=== PATIENT | female | born 1930 | race Caucasian/White ===

== ENCOUNTER 2016-11-22 10:46 | Emergency (ER) | payer OTHER ==
[~2016-11-22] VITALS: Ht 157.5 cm; Wt 59.0 kg
[~2016-11-22 10:46] MED LIST: ACETAMINOPHEN325 M1 PO; ARICEPT 5 MG TAB5 MG PO; CLARITIN10 MG PO; LIDODERM 5%1 PATCH TRANSDERM; NIFEDIPINE ER60 M1 PO; POTASSIUM20 PO; REMERON15 MG PO; TENORMIN50 MG PO; TRAMADOL 50 MG50 MG PO; ZESTRIL20 MG PO
[2016-11-22 11:23] LABS: URINE BILIRUBIN NEGATIVE (Negative); URINE BLOOD NEGATIVE (Negative); URINE COLOR YELLOW; URINE GLUCOSE-RANDOM* NEGATIVE (Negative); URINE KETONES NEGATIVE (Negative); URINE NITRITE NEGATIVE (Negative); URINE PROTEIN (DIPSTICK) NEGATIVE (Negative); URINE SPECIFIC GRAVITY <= 1.005 (1.003-1.035); URINE UROBILINOGEN 0.2 E.U./dl (0.2-1.0)
[2016-11-22 11:29] LABS: ABSOLUTE NEUTROPHILS 2.6 thou/uL (1.4-8.2); BASOPHILS 1.1 % (0.0-2.0); EOSINOPHILS 1.3 % (0.0-3.0); HEMOGLOBIN 12.9 gm/dL (12.0-15.0); LYMPHOCYTES 51.3 % (24.0-44.0); MCH 29.8 pg (26.0-34.0); MCHC 34.8 g/dL (28.0-37.0); MCV 85.6 fL (80.0-100.0); MONOCYTES 8.9 % (1.0-8.0); PLATELET COUNT 202 thou/uL (150-400); POLYS 37.4 % (36.0-66.0); RBC 4.32 mil/uL (4.20-5.00); RDW 13.2 % (10.5-14.5); WBC 6.9 thou/uL (4.0-11.0)
[2016-11-22 11:31] LABS: MANUAL DIFF NO
[2016-11-22 11:32] LABS: AMORPHOUS URATES Few /LPF (None Seen); CASTS None Seen /LPF (None Seen); SQUAMOUS 0-3 Few /LPF (0-3); URINE RBC None Seen /HPF (0-2); URINE WBC 6-15 Few /HPF (0-5)
[2016-11-22 11:34] LABS: ANION GAP 5 mmol/L (7-16); BUN 18 mg/dL (7-18); CALCIUM 9.4 mg/dL (8.5-10.1); CHLORIDE 106 mmol/L (98-107); CO2 30 mmol/L (21-32); CREATININE 1.1 mg/dL (0.6-1.0); GLUCOSE 144 mg/dL (74-106); SODIUM 141 mmol/L (136-145)
[2016-11-22 11:40] LABS: ACETAMINOPHEN < 2 ug/mL (10-30); ALBUMIN 3.5 g/dL (3.4-5.0); ALKALINE PHOSPHATASE 88 U/L (46-116); DIRECT BILIRUBIN < 0.1 mg/dL (<0.1-0.3); SALICYLATE < 2.8 mg/dL (2.8-20.0); SGOT 18 U/L (15-37); SGPT 21 U/L (30-65); TOTAL BILIRUBIN 0.3 mg/dL (<0.1-1.0); TOTAL PROTEIN 7.2 g/dL (6.4-8.2)
[2016-11-22] MEDS ORDERED: POTASSIUM20 PO (12:33)
[2016-11-22] MEDS ORDERED: KEFLEX500 MG PO (12:33)
== END 2016-11-22 12:48 ==
LOC: ER 10:46
PROVIDERS: Emergency Medicine
DX: N39.0 Urinary tract infection, site not specified (principal); E87.6 Hypokalemia; I10 Essential (primary) hypertension; F03.90 Unspecified dementia, unspecified severity, without behavioral disturbance, psychotic disturbance, mood disturbance, and anxiety; Z90.710 Acquired absence of both cervix and uterus; Z98.890 Other specified postprocedural states

== ENCOUNTER 2018-05-11 16:00 | Emergency (ER) | payer OTHER ==
[~2018-05-11] VITALS: Ht 157.5 cm; Wt 63.5 kg
[~2018-05-11 16:00] MED LIST changes: +ATIVAN0.5 MG PO; +KEFLEX500 M1 PO; +KEFLEX500 MG PO; +MELATONIN1 MG PO; +MYLANTA PO; +ONDANSETRON HCL4 M2 PO; +PEPCID20 MG PO; +VOLTAREN GEL 1100 G2 TOP
[2018-05-11 16:46] LABS: ABSOLUTE NEUTROPHILS 2.4 thou/uL (1.4-8.2); EOSINOPHILS 1.4 % (0.0-3.0); HEMATOCRIT 44.3 % (37.0-47.0); HEMOGLOBIN 14.9 gm/dL (12.0-15.0); LYMPHOCYTES 51.7 % (24.0-44.0); MCH 30.3 pg (26.0-34.0); MCHC 33.7 g/dL (28.0-37.0); MCV 89.6 fL (80.0-100.0); MONOCYTES 9.7 % (1.0-8.0); PLATELET COUNT 174 thou/uL (150-400); POLYS 36.2 % (36.0-66.0); RBC 4.94 mil/uL (4.20-5.00); RDW 13.6 % (10.5-14.5); WBC 6.6 thou/uL (4.0-11.0)
[2018-05-11 16:50] LABS: ANION GAP 10 mmol/L (7-16); BUN 22 mg/dL (7-18); CALCIUM 10.1 mg/dL (8.5-10.1); CHLORIDE 105 mmol/L (98-107); CO2 29 mmol/L (21-32); GLUCOSE 89 mg/dL (74-106); POTASSIUM 4.1 mmol/L (3.5-5.1); SODIUM 144 mmol/L (136-145)
[2018-05-11 16:59] LABS: TROPONIN-I <0.06 ng/mL (<0.06)
[2018-05-11 19:22] VITALS: BP 174/75
--- NOTE | 2018-05-12 07:51 | EKG ---
[place] [address] [address] [facility] [place] [address] ELECTROCARDIOGRAM REPORT Name: CHERYL JAIME Room #: [facility]P [facility] [id number] ������������������ Admission: 05/11/18 ������������������ Attend Phys: Discharge: 05/11/18 ������������������ Date of : 34 Report #: [id number] ����������������������������������������������������������������� [id number] THIS REPORT FOR: //name// [facility] ED Test Date: 2018-05-11 Test Time: 16:23:35 Pat Name: CHERYL JAIME Department: Room: Gender: F Medical Administrative Specialist: [facility] : 1930 Requested By: Silvana Barillas Order Number: [id number] MD: Farrukh Ladd Measurements Intervals [place] Rate: 49 P: 53 ID: [id number] QRS: -6 QRSD: 90 T: 38 QT: 434 QTc: 392 Interpretive Statements Sinus bradycardia with sinus arrhythmia Otherwise no significant abnormality Compared to ECG 10/19/2017 08:29:14 No significant change was found Electronically Signed On 05-12-2018 7:50:53 DRILLING MACHINE RUNNER by Farrukh Ladd [email or web address] ��������������������������������������������� <ELECTRONICALLY SIGNED> ���������������������������������������� By: Farrukh Ladd MD, [facility] ��������������������������������������������� 05/12/18 0750 1622 22 aFrrukh Ladd MD, FACC /EPI
== END 2018-05-11 19:27 | disposition home or self-care (01) ==
LOC: ER 16:00
PROVIDERS: Emergency Medicine
DX: R07.89 Other chest pain (principal); I10 Essential (primary) hypertension; F03.90 Unspecified dementia, unspecified severity, without behavioral disturbance, psychotic disturbance, mood disturbance, and anxiety; Z90.49 Acquired absence of other specified parts of digestive tract; Z90.710 Acquired absence of both cervix and uterus

== ENCOUNTER 2020-04-07 20:20 | Inpatient (IN) | payer OTHER ==
[~2020-04-07] VITALS: Ht 162.6 cm; Wt 55.5 kg
[2020-04-07 20:21] VITALS: BP 189/145
[2020-04-07 20:42] LABS: HEMATOCRIT 40.1 % (37.0-47.0); HEMOGLOBIN 12.7 gm/dL (12.0-15.0); MCH 29.1 pg (26.0-34.0); MCHC 31.7 g/dL (28.0-37.0); PLATELET COUNT 190 thou/uL (150-400); RBC 4.36 mil/uL (4.20-5.00); RDW 14.4 % (10.5-14.5); WBC 12.7 thou/uL (4.0-11.0)
[2020-04-07 20:57] LABS: PROTIME 10.6 Seconds (9.3-11.4)
[2020-04-07 21:29] LABS: CALCIUM 8.5 mg/dL (8.5-10.1); CREATININE 1.1 mg/dL (0.6-1.0)
[2020-04-07 21:31] LABS: ABSOLUTE NEUTROPHILS 10.3 thou/uL (1.4-8.2); METAMYELOCYTES 2 %
[2020-04-07 21:35] LABS: ALBUMIN 3.4 g/dL (3.4-5.0); TOTAL BILIRUBIN 0.2 mg/dL (0.2-1.0); TOTAL PROTEIN 6.9 g/dL (6.4-8.2)
[2020-04-07] MEDS ORDERED: ATIVAN0.5 M1 PO (22:01)
[2020-04-07] MEDS ORDERED: REMERON30 MG PO (22:02)
[2020-04-07] MEDS ORDERED: MYLANTA MAXIMU355 ML PO (22:03)
[2020-04-07] MEDS ORDERED: NYSTATIN1 EA10 TOP (22:05)
[2020-04-07] MEDS ORDERED: VITAMIN C500 M2 PO (22:07)
[2020-04-07] MEDS ORDERED: ZINC50 MG PO (22:07)
[2020-04-07 22:39] VITALS: BP 194/110
[2020-04-07] MEDS ORDERED: ARICEPT10 M1 PO (22:59)
[2020-04-07 23:11] VITALS: BP 178/105
[2020-04-08 01:49] VITALS: BP 177/94
[2020-04-08 05:34] VITALS: BP 143/74
[2020-04-08 05:39] LABS: HEMATOCRIT 34.4 % (37.0-47.0); HEMOGLOBIN 11.1 gm/dL (12.0-15.0); MCH 29.7 pg (26.0-34.0); MCHC 32.3 g/dL (28.0-37.0); MCV 91.9 fL (80.0-100.0); RBC 3.74 mil/uL (4.20-5.00); RDW 14.3 % (10.5-14.5); WBC 9.4 thou/uL (4.0-11.0)
[2020-04-08 05:47] LABS: CALCIUM 9.2 mg/dL (8.5-10.1); CREATININE 1.1 mg/dL (0.6-1.0); POTASSIUM 4.9 mmol/L (3.5-5.1)
--- NOTE | 2020-04-08 08:26 | NUR ---
RECIEVED CARE OF PATIENT AT 2325 FROM ED ACCOMPANIED BY ED PERSONEL. PATIENT ORIENTED TO SELF ONLY. RESTLESS AND AGGITATED WHEN ARRIVED ON FLOOR. TRANSFERRED TO BED AND SOON SETTLED DOWN. HAS BIG GOOSE EGG ABOVE L EYE WITH ABRASION. PATIENT NON-VERBAL EXCEPT FOR A FEW WORDS. UNABLE TO ANSWER ADMIT QUESTIONS. DOES NOT APPEAR TO BE IN PAIN. RASHID CATH INSERTED THIS AM. SLEPT MOST OF THE NIGHT.
[2020-04-08 08:42] VITALS: BP 168/75
[2020-04-08 16:29] VITALS: BP 124/63
[2020-04-08 19:37] VITALS: BP 104/49
--- NOTE | 2020-04-08 21:23 | NUR ---
PT CARE ASSUMED AT 0700. ORIENTED TO SELF. NIGHT NURSE INSERTED RASHID CATHETER PER IMMOBILIZATION PROTOCOL. PT INCONTINENT TO BOWEL AND BLADDER. PT VERY RESTLESS AND PULLS AT RASHID AND UNDRESSES HERSELF. PT WILL HANG HER LEGS OVER THE RAILING. FAMILY (DPOA) REQUESTED ALL 4 RAILS UP ON BED. PT/OT/ST ON BOARD. SPEECH EVAL STATES NO STRAWS AND PILL ONE AT A TIME. PT POTENTIAL DISCHARGE ON FRIDAY AFTER THREE MIDNIGHT TO SKILLED REHAB. PT IS NONVERBAL BUT DID STATE "YUM" AFTER TAKING A DRINK. IV PATENT WITH NO REDNESS OR EDEMA,SALINE LOCKED. FALL PROTOCOL IN PLACE AND CLOSE TO THE NURSES STATION FOR CLOSE OBSERVATION. CALL LIGHT IN REACH. DAUGHTER AT BED SIDE. REPORT GIVEN TO RAJANI SUN.
--- NOTE | 2020-04-08 23:42 | NUR ---
PT WAS OBSERVED REMOVING HER GOWN,PULLED HER IV ACCESS AND WAS PULLING ON HER RASHID CATH.PT ALERT TO SELF.PT NOT REDIRECTABLE DUE TO ORIENTATION.PT BECAME AGGRESSIVE AND COMBATIVE WHEN STAFF TRIED TO HELP HER PUT HER GOWN AND HER OXYGEN BACK ON.PT WAS PUT ON 2L/NC DUE TO LOW O2 SAT.PRN MED GIVEN FOR PAIN AND ANXIETY.PT SLEPT FOR A WHILE AND WOKE UP AND STARTED PULLING ON HER O2,RASHID AND GOWN.BENDER HELPER ON DUTY NOTIFIED,ORDER NOTED AND CARRIED OUT.PT HAS BRUISING ABOVE HER R EYE FROM HER FALL.PT NON VERBAL.PT RESTING ON HER BED AT THIS TIME WITH HER EYES CLOSED.CALL LIGHT WITHIN REACH.
[2020-04-09 08:45] VITALS: BP 121/64
[2020-04-09 10:46] LABS: ABSOLUTE NEUTROPHILS 8.3 thou/uL (1.4-8.2); BASOPHILS 0.3 % (0.0-2.0); EOSINOPHILS 3.5 % (0.0-3.0); HEMOGLOBIN 9.9 gm/dL (12.0-15.0); LYMPHOCYTES 15.5 % (24.0-44.0); MCH 29.4 pg (26.0-34.0); MCHC 31.9 g/dL (28.0-37.0); MCV 92.2 fL (80.0-100.0); MONOCYTES 10.3 % (1.0-8.0); PLATELET COUNT 140 thou/uL (150-400); POLYS 70.4 % (36.0-66.0); RBC 3.36 mil/uL (4.20-5.00); RDW 14.7 % (10.5-14.5); WBC 11.8 thou/uL (4.0-11.0)
--- NOTE | 2020-04-09 13:31 | NUR ---
Assumed pt care this am, VS stable received with no IV no IV meds on board MD aware. alert and oriented to self. Very confused and would take her gown off and throw beddings on the floor, having arm bands out increases her aggitation. Fc in place draiing light yellow urine. Pt is a feeder, medications are best given crushed with apple sauce or pudding. Pain is managed with medications.
[2020-04-09 16:24] VITALS: BP 122/76
[2020-04-09 19:31] VITALS: BP 122/60
[2020-04-09 20:53] VITALS: BP 122/60
--- NOTE | 2020-04-09 22:48 | NUR ---
PT AWAKE, ORIENTED TO PERSON WITH CONFUSION. PT ASSESSED WITH FLACC OF 6 PT NOTED TO GRIMACE, MOAN/CRY WITH REPOSITIONING, HAVE RESTLESSNESS, AND CONSOLABLE WITH DISTRACTION. PT NOTED TO PULL AT LINES, REMOVING O2 AND ATTEMPTING TO REMOVE RASHID. IN REGARDS TO PAIN, PT RECEIVING PRN PO TRAMADOL Q6HR WITH PRN PO APAP Q4HR AND PRN IV FENTANYL Q4HR AVAILABLE. IN REGARDS TO ANXIETY AND RESTLESSNESS, PT RECEIVING PRN PO ATIVAN BID. NO IV IN PLACE AT THIS TIME. PT WITH MINIMAL PO INTAKE DESPITE ENCOURAGMENT. PT TOLERATING PO INTAKE OF FLUIDS AND MECHANICAL-ALTERED GROUND DIET WITHOUT ISSUE, NO ASPIRATION OR EMESIS NOTED. HS MEDICATIONS CRUSHED IN YOGURT AND GIVEN WITH SIP OF WATER, PT REFUSING ADDITIONAL HYDRATION AND SUPPLEMENTATION. PT CONTINUES TO REST IN BED, FREQUENT REPOSITIONING ENCOURAGED, PT NOTED TO HAVE WORSENED PAIN WITH REPOSITIONING. ONCALL ADMINISTRATIVE APPEALS [employer] NOTIFIED, ORDERS RECEIVED FOR LOW AIR LOSS MATTRESS. PT ENCOURAGED TO NOTIFY STAFF FOR ALL NEEDS, CALL LIGHT WITHIN REACH, BED ALARM ON, BED LOCKED IN LOWEST POSITION, ROOM REMAINS NEAR NURSES STATION, FREQUENT MONITORING WILL CONTINUE.
[2020-04-10 05:45] VITALS: BP 122/85
[2020-04-10 07:59] VITALS: BP 136/68
[2020-04-10 09:35] VITALS: BP 136/68
--- NOTE | 2020-04-10 11:40 | NUR ---
Pt dc ready to return to [facility] under her skilled medicare benefits for therapies due to public rami fracture. Dc and medicare benefits confirmed with their liason Patricia. She has arranged for a stretcher van at 2-3pm today and dtr Windy notified. She will be by to visit the pt over her lunch hour. Chart copy in progress. Nursing to call report. Will fax update and SNF dc orders once completed by the attending. All parties updated.
--- NOTE | 2020-04-10 12:00 | NUR ---
PT CARE ASSUMED AT 0700. ORIENTED TO SELF. LOW AIRLOSS PUMP ORDERED. PT MEDICALLY STABLE TO DC PER DR. MACK. DNR. RETURNING BACK TO [facility] TODAY ONCE TRANSPORTATION IS SET UP. IV PATENT WITH NO REDNESS OR EDEMA, SALINE LOCKED. UP IN RECLINER WITH PT. NO SIGNS OF AGGITATION THUS FAR. TAKING HER MEDS CRUSHED WITH APPLESAUCE. FLU SHOT ADMINISTERED TODAY.Q2 TURNS. FEEDER. BATH GIVEN. CALL LIGHT IN REACH. WILL CONTINUE TO MONITOR UNTIL TRANSFERRED BACK TO FACILITY.
== END 2020-04-10 15:15 | DRG 536 ==
LOC: ER 20:20 → 4S 22:39 → EROBS 22:39 → 4S 23:23
PROVIDERS: Emergency Medicine; Nurse Practitioner Family; ADMIT Surgery; ATTEND Surgery
DX: S32.89XA Fracture of other parts of pelvis, initial encounter for closed fracture (principal); W18.39XA Other fall on same level, initial encounter; E78.5 Hyperlipidemia, unspecified; S01.01XA Laceration without foreign body of scalp, initial encounter; I10 Essential (primary) hypertension; K21.9 Gastro-esophageal reflux disease without esophagitis; F03.90 Unspecified dementia, unspecified severity, without behavioral disturbance, psychotic disturbance, mood disturbance, and anxiety; F41.9 Anxiety disorder, unspecified; Z66 Do not resuscitate; F32.9 Major depressive disorder, single episode, unspecified; Z90.49 Acquired absence of other specified parts of digestive tract; Z90.710 Acquired absence of both cervix and uterus; Z79.899 Other long term (current) drug therapy; Z87.440 Personal history of urinary (tract) infections; Y93.89 Activity, other specified; Y92.89 Other specified places as the place of occurrence of the external cause; Y99.8 Other external cause status; Z23 Encounter for immunization
CPT/HCPCS: 10102

== ENCOUNTER 2020-06-09 10:58 | Inpatient (IN) | payer OTHER ==
[~2020-06-09] VITALS: Ht 157.5 cm; Wt 46.7 kg
[~2020-06-09 10:58] MED LIST changes: +ARICEPT10 M1 PO; +ATIVAN0.5 M1 PO; +MYLANTA MAXIMU355 ML PO; +NYSTATIN1 EA10 TOP; +REMERON30 MG PO; +VITAMIN C500 M2 PO; +ZINC50 MG PO
[2020-06-09 10:59] VITALS: BP 217/105
[2020-06-09 11:55] LABS: ABSOLUTE NEUTROPHILS 3.8 thou/uL (1.4-8.2); BASOPHILS 1.2 % (0.0-2.0); EOSINOPHILS 3.7 % (0.0-3.0); HEMATOCRIT 42.9 % (37.0-47.0); HEMOGLOBIN 14.1 gm/dL (12.0-15.0); LYMPHOCYTES 30.7 % (24.0-44.0); MCH 29.9 pg (26.0-34.0); MCHC 32.9 g/dL (28.0-37.0); MCV 90.8 fL (80.0-100.0); MONOCYTES 8.1 % (1.0-8.0); PLATELET COUNT 232 thou/uL (150-400); POLYS 56.3 % (36.0-66.0); RBC 4.72 mil/uL (4.20-5.00); RDW 15.1 % (10.5-14.5); WBC 6.8 thou/uL (4.0-11.0)
[2020-06-09 12:00] LABS: CALCIUM 9.1 mg/dL (8.5-10.1); CREATININE 0.9 mg/dL (0.6-1.0); POTASSIUM 4.3 mmol/L (3.5-5.1)
[2020-06-09 12:06] LABS: ALBUMIN 3.5 g/dL (3.4-5.0); TOTAL BILIRUBIN 0.4 mg/dL (0.2-1.0); TOTAL PROTEIN 7.5 g/dL (6.4-8.2)
[2020-06-09 12:53] LABS: URINE BILIRUBIN NEGATIVE (Negative); URINE BLOOD NEGATIVE (Negative); URINE CLARITY CLEAR; URINE COLOR YELLOW; URINE GLUCOSE-RANDOM* NEGATIVE (Negative); URINE KETONES NEGATIVE (Negative); URINE LEUKOCYTES-REFLEX NEGATIVE (Negative); URINE PROTEIN (DIPSTICK) NEGATIVE (Negative); URINE UROBILINOGEN 0.2 E.U./dl (0.2-1.0)
[2020-06-09 12:55] LABS: URINE NITRITE-REFLEX POSITIVE (Negative)
[2020-06-09 13:11] LABS: BACTERIA-REFLEX >30 Many /HPF (None Seen); MUCUS 0-3 Light strn/LPF (None Seen); SQUAMOUS 0-3 Few /LPF (0-3); URINE WBC-REFLEX 6-15 Few /HPF (0-5)
[2020-06-09 13:12] LABS: CASTS None Seen /LPF (None Seen); CRYSTALS None Seen /LPF (None Seen); URINE RBC None Seen /HPF (0-2)
[2020-06-09 14:28] LABS: CHOLESTEROL 164 mg/dL (<200); HDL CHOLESTEROL 44 mg/dL (>40); LDL CHOLESTEROL 99 mg/dL (<100); TC:HDL 3.7 Ratio (Not establshd); TRIGLYCERIDE 107 mg/dL (<150); VLDL 21 mg/dL (<40)
[2020-06-09 17:45] VITALS: BP 158/60
[2020-06-09 20:22] VITALS: BP 158/95
--- NOTE | 2020-06-09 21:32 | NUR ---
ADMITTED TO THE UNIT AT APPROXIMATELY 1930. PT IS A/O X1 AND APPEARS ANXIOUS AND RESTLESS. COMBATIVE TO STAFF AND HAS SLURRED SPEECH. AT THIS TIME FOR PT SAFETY SHE WILL NEED TO BE ON BEDREST. HAS NOT BEEN IMPULSIVE TO GET OUT OF BED BUT PT DAUGHTER STATES SHE MIGHT TRY. PT ROOM IS NEXT TO NURSES STATION WITH FREQUENT CHECKS. ROOM AIR. SR ON THE MONITOR IN THE 70'S AT THIS TIME. RASHID IN PLACE AND DRAINING YELLOW URINE WITH SOME SEDIMENT NOTED. NO BM SINCE ADMISSION. MINIMAL BRUISING NOTED ON SKIN. DAUGHTER WAS UNSURE OF ALL MEDICATIONS PT IS TAKING. MED REQ UPDATED TO BE REVIEWED BY PHYSCIAN. FALL PRECAUTIONS IMPLEMENTED, CALL LIGHT IS WITHIN REACH. WILL CONTINUE TO MONITOR.
[2020-06-10 07:06] LABS: CREATININE 0.9 mg/dL (0.6-1.0); POTASSIUM 4.1 mmol/L (3.5-5.1)
[2020-06-10 07:10] LABS: ALBUMIN 3.4 g/dL (3.4-5.0); PHOSPHORUS 3.4 mg/dL (2.6-4.7)
[2020-06-10 07:36] VITALS: BP 186/100
[2020-06-10 16:21] VITALS: BP 176/85
--- NOTE | 2020-06-10 18:37 | NUR ---
PT ALERT TO SELF ONLY. PT VERY IMPULSIVE. VSS, IVF INFUSING PER ORDER. RASHID TO DD. PT DOES NOT C/O PAIN. PT TOLERATES MEDS AND MEALS. PT DAUGHTER AT BEDSIDE THIS AFTERNOON. WILL CONTINUE TO MONITOR.
[2020-06-10 20:13] VITALS: BP 174/113
--- NOTE | 2020-06-11 03:20 | NUR ---
PT CARE ASSUMED WITH PT IN BED .PT IS A/O TO SELF .PT IS ON BEDREST.PT APPREARED TO BE IN NO ACUTE DISTRESS.PT IS A DNR .PT HAS A RASHID CATHETER IN PLACE.IV ACCESS ON RT WRIST SL.PT IS ON PUREED DIET AND TAKE MEDICATION CRUSHED IN APPLE SAUCE WITH NO ISSUES.WILL CONTINUE TO MONITOR
[2020-06-11 04:13] LABS: CALCIUM 8.5 mg/dL (8.5-10.1); CREATININE 0.8 mg/dL (0.6-1.0); POTASSIUM 3.3 mmol/L (3.5-5.1)
[2020-06-11 08:00] VITALS: BP 149/96
[2020-06-11 16:10] VITALS: BP 162/93
--- NOTE | 2020-06-11 19:23 | NUR ---
Assumed pt care at 7am.Assessment completed.vss.Rn fed pt at all meals.Good appetite noted. Pt tolerated meds. Dtr here to visit.Pt in bed sleeping on and off.No agitation or restlessness noted.Fall bundle in place. Sr per tele monitor at alltimes.Will continue to monitor.
[2020-06-11 19:47] VITALS: BP 160/98
--- NOTE | 2020-06-12 | NUR ---
PT'S HR ELEVATED AT SHIFT CHANGE.PT WAS VERY RESTLESS,IMPULSIVE AND COMBATIVE WITH CARE.PT KEPT TAKING HER TELE MONITOR OFF,WAS PUT ON HER BACK.PT WAS OBSERVED PULLING ON HER RASHID CATH,PT ENCOURAGED TO LEAVE CATH IN PLACE.TYLENOL GIVEN TO HELP CALM PT DOWN,EFFECTIVE.PT'S HR IN LOW 90'S NOW THAT PT IS ASLEEP.SNACK PROVIDED AT HS.CALL LIGHT WITHIN REACH.
--- NOTE | 2020-06-12 07:16 | EKG ---
[address] [place] [place] [address] ELECTROCARDIOGRAM REPORT Name: CHERYL JAIME Room #: 451-P ADM IN M.R.#: [id number] Admission: 06/09/20 Attend Phys: Venkat Bermudez Discharge: Date of : 34 Report #: [id number] [facility] ED Test Date: 2020-06-09 Test Time: 11:29:54 Pat Name: CHERYL JAIME Department: Room: [facility] Gender: F Chair Installer: BRIGIDA : 1930 Requested By: Jonathan Flores Order Number: [id number] MD: Aj Castillo Measurements Intervals [place] Rate: 60 P: -56 NC: 210 QRS: -19 QRSD: 85 T: 26 QT: 401 QTc: 401 Interpretive Statements NSR Left atrial enlargement Abnormal R-wave progression, early transition Probable left ventricular hypertrophy Inferior infarct, old Compared to ECG 05/11/2018 16:23:35 Ectopic atrial rhythm now present Atrial abnormality now present Myocardial infarct finding now present Sinus bradycardia no longer present Sinus arrhythmia no longer present Electronically Signed On 06-12-2020 7:15:55 CDT by Aj Castillo [email or web address] <ELECTRONICALLY SIGNED> By: Aj Castillo MD, FAC 06/12/20 0715 1129 1129 Aj Castillo MD, [facility] /EPI
--- NOTE | 2020-06-12 08:30 | NUR ---
PT SLEEPING AT THIS TIME. PT ACCEPTED VS BEING TAKEN. PT NOT ORIENTED TO SELF OR PLACE, PT NOT VERBALIZING ONLY SIMPLE WORDS, PT WAS STARTLED WHEN APPROACHED AND LOOKED SUSPICIOUS. PT HAS RASHID TO DD WITH CLEAR YELLOW URINE. UNKNOWN ON BM, PT NEEDS ASSISTANCE WITH FEEDING. WHEN GIVING THIN WATER THIS AM, PT DID COUGH A FEW TIMES. LUNGS CLEAR, SHALLOW BREATHS. SL TO RT WRIST AREA THAT IS SECURED WITH COBAN. NO EDEMA NOTED.
[2020-06-12] MEDS ORDERED: CEFUROXIME250 MG PO (09:22)
[2020-06-12] MEDS ORDERED: NIFEDIPINE ER60 M1 PO (09:22)
[2020-06-12 09:40] VITALS: BP 165/98
--- NOTE | 2020-06-12 10:54 | NUR ---
PT ADMITTED RELATED TO AMS,HTN,UTI. CM REVIEWED CHART AND SPOKE WITH CARE TEAM. CM SPOKE WITH PT'S DTR THIS AM SHE INDICATED THAT THEY ANTICPATE PT RETURNING TO [facility] AND THEY ARE INTERESTED IN ELECTING HOSPICE SERVICES UPON HER OK RETURN. CM RECIEVED A PC FROM [facility] AND THEY ARE [facility] PREFERRED PROVIDER. CARE TEAM INDICATED THAT PT IS MEDICALLY STABLE TO DC THIS THIS DAY. CM NOTIFIED DTR. ORDERS TO BE FAXED TO [facility] AND [facility]. [facility]BUL[facility] TRANSPORT TO BE ARRANGED. CM TO NOTIFY FTR OF TIME OF TRANSPORT.
--- NOTE | 2020-06-12 14:06 | NUR ---
PT DISCHARGING TODAY TO [facility] WITH [facility]. FAXED DC ORDERS/SUMARY TO FACILITY SPOKE WITH NEISHA IN ADM SHE RECEIVED ORDERS. FAXED DC ORDERS TO [facility] SPOKE WITH MO IN INTAKE HE WILL HAVE A NURSE AT FACILITY WHEN PT ARRIVES. ARRANGED TRANSPORT BY AMBULANCE FOR [id number] TODAY NOTIFIED PT'S DTR (FROYLAN) OF TRANSPORT TIME. UNIT NOTIFIED AND CHART COPY PER US. RN TO CALL REPORT TO [phone].
--- NOTE | 2020-06-12 14:38 | NUR ---
PT CHEERFUL WHEN NURSES WALKED IN AND SAID SHE LOVED THEM. PT ALLOWED SN TO TAKE OUT RASHID CATH. PT HAD 255ML OF YELLOW URINE FROM RASHID BAG. PT DISCHARGING AROUND 1500 TODAY.
--- NOTE | 2020-06-12 15:51 | NUR ---
GAVE REPORT TO ODESSA GERARD AT [facility]. PT LEFE [facility]IA EMS AROUND 1515. RASHID OUT AND IV WAS TAKEN OUT. PT WAS DRESSED AND GIVEN ALL PERSONAL BELONGINGS.
== END 2020-06-12 15:15 | disposition hospice, home (50) | DRG 78 ==
LOC: ER 10:58 → 4W 14:11 → EROBS 14:11 → 4W 19:16
PROVIDERS: Emergency Medicine; ADMIT Hospitalist; ATTEND Hospitalist
DX: I67.4 Hypertensive encephalopathy (principal); N39.0 Urinary tract infection, site not specified; S09.90XA Unspecified injury of head, initial encounter; Z66 Do not resuscitate; F03.90 Unspecified dementia, unspecified severity, without behavioral disturbance, psychotic disturbance, mood disturbance, and anxiety; I10 Essential (primary) hypertension; Z90.49 Acquired absence of other specified parts of digestive tract; W18.30XA Fall on same level, unspecified, initial encounter; Y93.89 Activity, other specified; Y92.89 Other specified places as the place of occurrence of the external cause; Y99.8 Other external cause status; Z90.710 Acquired absence of both cervix and uterus
CPT/HCPCS: 10045; 10047